=== PATIENT | female | born 1980 | race Two or more races ===

== ENCOUNTER 2017-09-22 15:25 | Outpatient (CLI) | END 2017-09-22 16:15 | disposition home or self-care (01) ==

== ENCOUNTER 2017-09-24 23:26 | Outpatient (CLI) | END 2017-09-25 03:36 | disposition home or self-care (01) ==

== ENCOUNTER 2017-09-28 21:16 | Outpatient (CLI) | END 2017-09-28 23:09 | disposition home or self-care (01) ==

== ENCOUNTER 2017-10-02 21:29 | Outpatient (CLI) | END 2017-10-03 04:00 | disposition home or self-care (01) ==

== ENCOUNTER 2017-10-07 11:57 | Outpatient (CLI) | END 2017-10-07 15:15 | disposition home or self-care (01) ==

== ENCOUNTER 2017-10-14 20:37 | Outpatient (CLI) | END 2017-10-14 22:02 | disposition home or self-care (01) ==

== ENCOUNTER 2017-10-18 02:58 | Inpatient (IN) | END 2017-10-22 15:55 | disposition home or self-care (01) | DRG 766 ==